=== PATIENT | female | born 1960 | race Caucasian/White ===

== ENCOUNTER 2016-07-14 02:59 | Emergency (ER) | payer MEDICAID ==
[~2016-07-14] VITALS: Ht 172.7 cm; Wt 78.0 kg
[~2016-07-14 02:59] MED LIST: IBUP100T4
[2016-07-14] MEDS ORDERED: IBUPROFEN 200 MG TABLET ONE (03:21)
[2016-07-14] MEDS ORDERED: IBUPROFEN 200 MG TABLET PO ONE (03:30)
[2016-07-14] MEDS ORDERED: HYDROcodone/APAP 5/325 TABLET ONE (03:32)
[2016-07-14] MEDS ORDERED: HYDROcodone/APAP 5/325 TABLET PO ONE (04:00)
[2016-07-14 04:27] VITALS: BP 146/83
== END 2016-07-14 05:11 | disposition home or self-care (01) ==
LOC: ED 04:50
DX: S82.61XA Displaced fracture of lateral malleolus of right fibula, initial encounter for closed fracture (principal); W10.9XXA Fall (on) (from) unspecified stairs and steps, initial encounter; Y93.89 Activity, other specified; Y92.89 Other specified places as the place of occurrence of the external cause; Y99.8 Other external cause status; Z87.440 Personal history of urinary (tract) infections
CPT/HCPCS: 29515

== ENCOUNTER 2019-04-30 08:10 | Emergency (ER) | payer MEDICAID ==
[~2019-04-30] VITALS: Ht 172.7 cm; Wt 89.4 kg
--- NOTE | 2019-04-30 08:49 | NUR ---
SAL[employer]ERSON NEW CARS: PT TO ROOM FROM LOBBY GAIT SLOW AND STEADY
--- NOTE | 2019-04-30 09:04 | NUR ---
PT HERE WITH C/O PRODUCTIVE COUGH AND INTERMITTENT SOB X 1 WEEK. PT STATES SHE HAS BEEN COUGHING UP "THINK ROCK LIKE STUFF." PT AAO X 4, NAD, ROOM AIR, DRESSED IN GOWN AND ATTACHED TO MONITOR. PT SITTING UPRIGHT IN GURNEY, CALL LIGHT WITHIN REACH, SIDERAIL X [address] PA AT BEDSIDE FOR EXAM.
[2019-04-30] MEDS ORDERED: DEXAMETHASONE 4 MG TABLET ONE (09:21)
--- NOTE | 2019-04-30 09:23 | NUR ---
PT MEDICATED PER ORDERS.
[2019-04-30] MEDS ORDERED: DEXAMETHASONE 4 MG TABLET PO ONE (09:30)
[2019-04-30 10:25] VITALS: BP 135/77
--- NOTE | 2019-04-30 10:25 | NUR ---
Task RN: Discharge instructions discussed with patient including when to return to emergency department, prescriptions provided with instruction for use, patient verbalizes understanding. Patient ambulates with steady gait to discharge desk in no acute distress.
== END 2019-04-30 10:28 | disposition home or self-care (01) ==
LOC: ED 09:12
DX: B34.9 Viral infection, unspecified (principal); F17.210 Nicotine dependence, cigarettes, uncomplicated
CPT/HCPCS: 71046; 99283

== ENCOUNTER 2019-08-11 13:38 | Emergency (ER) | payer MEDICAID ==
[~2019-08-11] VITALS: Ht 172.7 cm; Wt 87.5 kg
--- NOTE | 2019-08-11 15:44 | NUR ---
VITALS RECHECKED. VSS. PT ESCORTED BACK TO LOBBY.
--- NOTE | 2019-08-11 16:12 | NUR ---
PT TO CT.
[2019-08-11 16:26] LABS: BASOPHILS # (AUTO) 0.05 x10^3/uL (0-0.1); BASOPHILS % (AUTO) 1 % (0-1); EOSINOPHILS # (AUTO) 0.17 x10^3/uL (0-0.4); EOSINOPHILS % (AUTO) 3 % (1-7); LYMPHOCYTES # (AUTO) 2.18 x10^3/uL (1-3.4); LYMPHOCYTES % (AUTO) 36 % (22-44); MD NO; MEAN CORPUSCULAR HEMOGLOBIN 30.5 pg (27.0-34.8); MEAN CORPUSCULAR HGB CONC 33.9 g/dL (32.4-35.8); MEAN PLATELET VOLUME 8.9 fL (7.4-10.4); MONOCYTES # (AUTO) 0.53 x10^3/uL (0.2-0.8); MONOCYTES % (AUTO) 9 % (2-9); NEUTROPHILS % (AUTO) 51 % (42-75); PLATELET COUNT 232 x10^3/uL (130-400); RED BLOOD COUNT 4.58 x10^6/uL (3.82-5.3); RED CELL DISTRIBUTION WIDTH 13.6 % (9.6-15.2)
--- NOTE | 2019-08-11 16:27 | NUR ---
PT SITTING IN BED, NO SIGNS OF DISTRESS, WILL CONTINUE TO MONITOR.
[2019-08-11 16:28] LABS: INTERNATIONAL NORMALIZED RATIO 0.93 (0.93-1.1); PROTHROMBIN TIME 9.9 Seconds (9.6-11.5)
[2019-08-11 16:29] LABS: ALANINE AMINOTRANSFERASE 41 U/L (12-78); ANION GAP 6 mmol/L (5-15); CALCIUM 8.6 mg/dL (8.5-10.1); CHLORIDE 105 mmol/L (98-107); CREATININE 0.74 mg/dL (0.55-1.02)
[2019-08-11 16:31] LABS: ALKALINE PHOSPHATASE 91 U/L (45-117); BILIRUBIN,TOTAL 0.8 mg/dL (0.2-1.0); TOTAL PROTEIN 8.3 g/dL (6.4-8.2)
[2019-08-11 16:40] VITALS: BP 152/78
--- NOTE | 2019-08-11 17:34 | NUR ---
PT UP TO DRESS SELF, AMBULATORY TO BATHROOM AND D/C, STEADY GAIT.
== END 2019-08-11 17:56 | disposition home or self-care (01) ==
LOC: ED 16:43
DX: M54.12 Radiculopathy, cervical region (principal); R94.31 Abnormal electrocardiogram [ECG] [EKG]; Z90.89 Acquired absence of other organs
CPT/HCPCS: 36415; 70450; 72125; 80053; 85025; 85610; 85730; 93005; 99285

== ENCOUNTER 2020-07-05 20:48 | Emergency (ER) | payer MEDICAID ==
[~2020-07-05] VITALS: Ht 172.7 cm; Wt 83.7 kg
[2020-07-05] MEDS ORDERED: ACETAMINOPHEN 500 MG TABLET PO ONE (21:30)
[2020-07-05] MEDS ORDERED: ACETAMINOPHEN 500 MG TABLET ONE (21:33)
[2020-07-05 22:04] VITALS: BP 154/86
--- NOTE | 2020-07-05 22:22 | NUR ---
Patient given discharge instructions and they have confirmed that they understand the instructions. Patient ambulatory with steady gait.
== END 2020-07-05 22:38 | disposition home or self-care (01) ==
LOC: ED 21:18
DX: B34.9 Viral infection, unspecified (principal); Z20.822 Contact with and (suspected) exposure to COVID-19
CPT/HCPCS: 71045; 99284; U0003

== ENCOUNTER 2020-11-01 03:57 | Emergency (ER) | payer MEDICAID ==
[~2020-11-01] VITALS: Ht 175.3 cm; Wt 84.2 kg
--- NOTE | 2020-11-01 06:15 | NUR ---
TASK RN: INITIAL PT CONTACT. PT PRESENTS TO ED C/O "I THINK I HAVE ANOTHER BARTHOLIN CYST ON THE RIGHT SIDE. I HAVE HAD THEM ABOUT 3 TIMES BEFORE." PT DENIES ANY NEW SEXUAL PARTNERS, NO VAGINAL BLEEDING OR DISCHARGE. PT UPRIGHT ON DEBORAH CAZARES, VSS. PT DENIES ANY NEEDS AT THIS TIME. CALL LIGHT AND PERSONAL BELONGINGS WITHIN REACH. AWAITING ERP.
[2020-11-01] MEDS ORDERED: LIDOCAINE 1%-EPI 1:100K, 20ML ONE (06:52)
[2020-11-01] MEDS ORDERED: LIDOCAINE 1%-EPI 1:100K, 20ML SQ ONE (07:00)
--- NOTE | 2020-11-01 07:00 | NUR ---
REPORT GIVEN TO JOANN BELCHER
[2020-11-01 08:01] VITALS: BP 124/78
--- NOTE | 2020-11-01 08:14 | NUR ---
Patient given discharge instructions and prescription and they have confirmed that they understand the instructions. Patient ambulatory with steady gait. NAD, all questions answered appropriately, denies additional needs at this time. No personal belongings left in room after discharge.
== END 2020-11-01 08:15 | disposition home or self-care (01) ==
LOC: ED 07:11
DX: N75.1 Abscess of Bartholin's gland (principal)
CPT/HCPCS: 56420; 99284